=== PATIENT | female | born 1965 | race Two or more races ===

== ENCOUNTER 2018-02-28 11:38 | Emergency (ER) | payer BC ==
[2018-02-28 11:46] VITALS: BP 140/92
--- NOTE | 2018-02-28 12:11 | UC ---
Malachi Adams Jennifer, scribed for Sherice Macias MD on 02/28/18 at 1202 . General HPI - HPI Summary HPI Summary: The patient is a 52 year old female who presents with diarrhea for the past two days. The patient reports that it was sudden onset diarrhea followed by a headache, feeling freezing, fever, nausea, and rumbly stomach but denies vomiting. She explains that she had watery diarrhea all day yesterday, but less so today after taking Imodium. She has had three bowel movements today but denies blood in the stool. The patient reports that she hasnt taken her normal medications today and cant remember if she did yesterday, but it usually doesn t affect her when she misses her medications. 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 - History of Current Complaint Chief Complaint: UCGI Stated Complaint: DIARRHEA Time Seen by Provider: 02/28/18 11:52 Hx Obtained From: Patient Hx Last Menstrual Period: June, hormones Onset/Duration: Sudden Onset, Lasting Days - 2 days, Still Present Timing: Constant Onset Severity: Mild Current Severity: Mild Pain Intensity: 1 Associated Signs & Symptoms: Positive: Other - diarrhea, headache, chills, fever , nausea, "rumbly" stomach. NEGATIVE: vomiting - Allergy/Home Medications Allergies/Adverse Reactions: Allergies Allergy/AdvReac Type Severity Reaction Status Date / Time cefuroxime [From Ceftin] Allergy Vomiting Verified 02/28/18 11:47 Sulfa (Sulfonamide Allergy Rash Verified 02/28/18 11:47 Antibiotics) Home Medications: Home Medications Meloxicam 7.5 mg PO 02/28/18 [History] PMH/Surg Hx/FS Hx/Imm Hx GI/ History: Other Other GI/ History: Endometriosis Psychological History: Anxiety, Depression - Surgical History Surgical History: Yes Surgery Procedure, Year, and Place: Endometrial growth removed. Removed uterine fibroids, dermoid cyst removed, tubal ligation. cyst removed from eyelid. UFE PROCEDURE -02/29/16 - Family History Known Family History: Positive: Hypertension - Father - Social History Occupation: Employed Full-time Lives: Alone Alcohol Use: Rare Substance Use Type: None Smoking Status (MU): Never Smoked Tobacco Review of Systems Constitutional: Fever, Chills Skin: Negative Eyes: Negative ENT: Negative Respiratory: Negative Cardiovascular: Negative Gastrointestinal: Negative - Vomiting, Diarrhea, Nausea, Other - "rumbly" stomach, blood in stool Genitourinary: Negative Motor: Negative Neurovascular: Negative Musculoskeletal: Negative Neurological: Headache Psychological: Negative All Other Systems Reviewed And Are Negative: Yes Physical Exam Triage Information Reviewed: Yes Appearance: No Pain Distress, Well-Nourished Vital Signs: Initial Vital Signs Temp 97.0 F 02/28/18 11:43 Pulse 119 02/28/18 11:43 Resp 18 02/28/18 11:43 BP 140/92 02/28/18 11:43 Pulse Ox 98 02/28/18 11:43 Eyes: Positive: Conjunctiva Clear ENT: Positive: Pharynx normal, TMs normal Neck: Positive: Supple, Nontender, No Lymphadenopathy Respiratory: Positive: Lungs clear, Normal breath sounds Cardiovascular: Positive: RRR, No Murmur Abdomen Description: Positive: Nontender, No Organomegaly, Soft Bowel Sounds: Positive: Hyperactive Musculoskeletal Exam: Normal Neurological Exam: Normal Psychological Exam: Normal Skin Exam: Normal Course/Dx - Course Course Of Treatment: The patient is a 52 year old female who presents with diarrhea for the past two days. Pt medications reviewed at this visit. Allergies noted. BP noted and advised to follow up with PCP. Rehydration and advancement of diet discussed. - Differential Dx - Multi-Symptom Differential Diagnoses: Other - gastroenteritis, colitis, diverticulitis. Provider Diagnoses: acute gastroenteritis. Discharge - Sign-Out/Discharge Documenting (check all that apply): Discharge - Discharge Plan Condition: Stable Disposition: HOME Patient Education Materials: Gastroenteritis (ED), Nutrition Tips for Relief of Diarrhea (ED) Forms: *Work Release Referrals: Cynthia Rico NP [Primary Care Provider] - Additional Instructions: As discussed, focus on rehydration and gradually advancing your diet. Ensure that you take your medications today with a light meal. Today you might try some protein (scrambled eggs or poached chicken) along with cooked vegetables. Off work tomorrow. - Billing Disposition and Condition Condition: STABLE Disposition: HOME The documentation as recorded by the Malachi dangelo Jennifer accurately reflects the service I personally performed and the decisions made by me, Sherice Macias MD.
== END 2018-02-28 12:22 | disposition home or self-care (01) ==
LOC: UCEAST 11:38
DX: K52.9 Noninfective gastroenteritis and colitis, unspecified (principal); N80.9 Endometriosis, unspecified; F41.9 Anxiety disorder, unspecified; F32.9 Major depressive disorder, single episode, unspecified; Z88.1 Allergy status to other antibiotic agents; Z88.2 Allergy status to sulfonamides
CPT/HCPCS: 99211; G0463

== ENCOUNTER 2018-04-03 14:53 | Emergency (ER) | payer BC ==
--- NOTE | 2018-04-03 15:00 | UC ---
Throat Pain/Nasal Armando HPI - HPI Summary HPI Summary: 52 yo female presents with continued upper respiratory complaints. She tells me that about 3 weeks ago she saw her PCP for a "sinus infection" and was rx'd omnicef - had no relief. Went back 1 week ago because pt developed a productive cough and chest tightness - was rx'd prednisone, of which she is still taking today. Pt here today with no improvement of symptoms. She says that respiratory problems are "her thing" and she knows what usually works well. Has tried albuterol and advair in the past but she says they made her symptoms worse. Is intolerant to a variety of antibiotics. Denies fever, chills, SOB, chest pain, abdominal pain, n/v. - History of Current Complaint Stated Complaint: SINUS Time Seen by Provider: 04/03/18 15:00 Hx Obtained From: Patient Hx Last Menstrual Period: June, hormones Onset/Duration: Gradual Onset Cough: Productive - Allergies/Home Medications Allergies/Adverse Reactions: Allergies Allergy/AdvReac Type Severity Reaction Status Date / Time amoxicillin [From Augmentin] Allergy GI Upset Verified 04/03/18 15:06 cefuroxime [From Ceftin] Allergy Vomiting Verified 02/28/18 11:47 clarithromycin [From Biaxin] Allergy GI Upset Verified 04/03/18 15:06 clavulanic acid Allergy GI Upset Verified 04/03/18 15:06 [From Augmentin] erythromycin base Allergy GI Upset Verified 04/03/18 15:06 Sulfa (Sulfonamide Allergy Rash Verified 02/28/18 11:47 Antibiotics) Home Medications: Home Medications predniSONE [Prednisone] 20 mg PO DAILY 04/03/18 [History Confirmed 04/03/18] PMH/Surg Hx/FS Hx/Imm Hx Previously Healthy: Yes Respiratory History: Asthma GI/ History: Gastroesophageal Reflux Psychological History: Anxiety, Depression, Bipolar Disorder - Surgical History Surgical History: Yes Surgery Procedure, Year, and Place: Endometrial growth removed. Removed uterine fibroids, dermoid cyst removed, tubal ligation. cyst removed from eyelid. UFE PROCEDURE -02/29/16 - Family History Known Family History: Positive: Hypertension - Father - Social History Occupation: Employed Full-time Lives: With Family Alcohol Use: Rare Substance Use Type: None Smoking Status (MU): Never Smoked Tobacco Review of Systems Constitutional: Negative Skin: Negative Eyes: Negative ENT: Nasal Discharge, Sinus Congestion, Sinus Pain/Tenderness Respiratory: Cough Cardiovascular: Negative Gastrointestinal: Negative Neurovascular: Negative Neurological: Negative Psychological: Negative All Other Systems Reviewed And Are Negative: Yes Physical Exam - Summary Physical Exam Summary: GENERAL: NAD. WDWN. No pain distress. SKIN: No rashes, sores, lesions, or open wounds. HEENT: Head: AT/NC Eyes: EOM intact. Conjunctiva clear without inflammation or discharge. Ears: Hearing grossly normal. TMs intact, no bulging, erythema, or edema. Nose: Nasal mucosa mildly swollen and erythematous with yellow/ clear discharge. TTP maxillary and frontal sinus. Throat: Posterior oropharynx without exudates, erythema, or tonsillar enlargement. Uvula midline. NECK: Supple. Nontender. No lymphadenopathy. CHEST: CTAB. No r/r/w. No accessory muscle use. Breathing comfortably and in no distress. CV: RRR. Without m/r/g. Pulses intact. Brisk cap refill. NEURO: Alert. CN II-XII grossly intact. PSYCH: Age appropriate behavior. Triage Information Reviewed: Yes Throat Pain/Nasal Course/Dx - Course Course Of Treatment: Sinusitis. Bronchitis. Pt says the only thing that works for her and that she can take is levaquin. - Differential Dx/Diagnosis Provider Diagnoses: Sinusitis. Bronchitis Discharge - Sign-Out/Discharge Documenting (check all that apply): Discharge/Admit/Transfer - Discharge Plan Condition: Stable Disposition: HOME Prescriptions: Levofloxacin TAB* [Levaquin TAB*] 500 mg PO DAILY #10 tab Patient Education Materials: Sinusitis (ED), Acute Bronchitis (ED) Referrals: Cynthia Rico NP [Primary Care Provider] - Additional Instructions: If you develop a fever, shortness of breath, chest pain, new or worsening symptoms - please call your PCP or go to the ED. - Billing Disposition and Condition Condition: STABLE Disposition: HOME
[2018-04-03 15:05] VITALS: BP 135/80
== END 2018-04-03 15:33 | disposition home or self-care (01) ==
LOC: UCCORT 14:53
DX: J32.9 Chronic sinusitis, unspecified (principal); J40 Bronchitis, not specified as acute or chronic; Z88.1 Allergy status to other antibiotic agents; Z88.0 Allergy status to penicillin; Z88.2 Allergy status to sulfonamides; Z88.8 Allergy status to other drugs, medicaments and biological substances
CPT/HCPCS: 99212; G0463

== ENCOUNTER 2019-02-15 16:27 | Emergency (ER) | payer BC ==
[2019-02-15 17:48] VITALS: BP 156/86
--- NOTE | 2019-02-15 18:24 | UC ---
Throat Pain/Nasal Armando HPI - HPI Summary HPI Summary: 53-year-old woman comes in with a chief complaint of sinusitis and bronchitis with bronchospasm. She's been having recurring sinusitis ever since December of this year. She was treated with azithromycin first which did not completely take it away and then in January she was treated with Levaquin which did help quite a bit however the symptoms have returned and are worse. She's having rhinorrhea sinus pressure and now she feels like it's going into her chest and she's getting some wheezing and chest congestion. No recent fevers. - History of Current Complaint Chief Complaint: UCRespiratory Stated Complaint: SINUS CONGESTION Time Seen by Provider: 02/15/19 18:10 Hx Last Menstrual Period: June, on hormones Pain Intensity: 1 - Allergies/Home Medications Allergies/Adverse Reactions: Allergies Allergy/AdvReac Type Severity Reaction Status Date / Time amoxicillin [From Augmentin] Allergy GI Upset Verified 02/15/19 17:45 cefuroxime [From Ceftin] Allergy Vomiting Verified 02/15/19 17:45 clarithromycin [From Biaxin] Allergy GI Upset Verified 02/15/19 17:45 clavulanic acid Allergy GI Upset Verified 02/15/19 17:45 [From Augmentin] erythromycin base Allergy GI Upset Verified 02/15/19 17:45 Sulfa (Sulfonamide Allergy Rash Verified 02/15/19 17:45 Antibiotics) PMH/Surg Hx/FS Hx/Imm Hx Previously Healthy: Yes GI/ History: Gastroesophageal Reflux - Surgical History Surgical History: Yes Surgery Procedure, Year, and Place: Endometrial growth removed. Removed uterine fibroids, dermoid cyst removed, tubal ligation. cyst removed from eyelid. UFE PROCEDURE -02/29/16 - Family History Known Family History: Positive: Hypertension - Father - Social History Alcohol Use: Rare Substance Use Type: None Smoking Status (MU): Never Smoked Tobacco Review of Systems All Other Systems Reviewed And Are Negative: Yes Constitutional: Positive: Negative Skin: Positive: Negative Eyes: Positive: Negative ENT: Positive: Nasal Discharge, Sinus Congestion, Sinus Pain/Tenderness Respiratory: Positive: Cough, Other - SEE HPI Cardiovascular: Positive: Negative Gastrointestinal: Positive: Negative Motor: Positive: Negative Neurovascular: Positive: Negative Musculoskeletal: Positive: Negative Neurological: Positive: Negative Psychological: Positive: Negative Is Patient Immunocompromised?: No Physical Exam Triage Information Reviewed: Yes Appearance: No Pain Distress, Well-Nourished, Ill-Appearing - MILD Vital Signs: Initial Vital Signs Temp 98.3 F 02/15/19 17:40 Pulse 83 02/15/19 17:40 Resp 16 02/15/19 17:40 BP 156/86 02/15/19 17:40 Pulse Ox 99 02/15/19 17:40 Vital Signs Reviewed: Yes Eye Exam: Normal Eyes: Positive: Conjunctiva Clear ENT: Positive: Pharyngeal erythema, Nasal congestion, Nasal drainage, TMs normal Neck: Positive: Supple Respiratory: Positive: Lungs clear, Normal breath sounds, No respiratory distress Cardiovascular: Positive: RRR Musculoskeletal: Positive: Strength Intact, ROM Intact Neurological: Positive: Alert, Muscle Tone Normal Psychological: Positive: Age Appropriate Behavior Skin Exam: Normal Throat Pain/Nasal Course/Dx - Differential Dx/Diagnosis Provider Diagnosis: Bronchitis with bronchospasm, Sinusitis Discharge - Sign-Out/Discharge Documenting (check all that apply): Patient Departure All imaging exams completed and their final reports reviewed: No Studies - Discharge Plan Condition: Stable Disposition: HOME Prescriptions: Levofloxacin TAB* [Levaquin TAB*] 500 mg PO DAILY #10 tab predniSONE TAB* [Deltasone 20 MG TAB*] 40 mg PO DAILY #10 tab Patient Education Materials: Sinusitis (ED), Acute Bronchitis (ED), Bronchospasm (ED) Referrals: Cynthia Rico NP [Primary Care Provider] - Additional Instructions: FOLLOW UP WITH YOUR DOCTOR IF NOT COMPLETELY IMPROVED. GET REEVALUATED SOONER FOR ANY WORSENING OF YOUR CONDITION OR ANY QUESTIONS OR CONCERNS. - Billing Disposition and Condition Condition: STABLE Disposition: Home
== END 2019-02-15 18:30 | disposition home or self-care (01) ==
LOC: UCEAST 16:27
DX: J20.9 Acute bronchitis, unspecified (principal); J32.9 Chronic sinusitis, unspecified; Z88.0 Allergy status to penicillin; Z88.1 Allergy status to other antibiotic agents; Z88.2 Allergy status to sulfonamides
CPT/HCPCS: 99212; G0463

== ENCOUNTER 2019-03-10 07:53 | Emergency (ER) | payer BC ==
[2019-03-10 08:07] VITALS: BP 143/82
--- NOTE | 2019-03-10 08:40 | UC ---
Hand/Wrist HPI - HPI Summary HPI Summary: 53-year-old female comes in with a chief complaint of redness swelling and tenderness in the right fourth finger on the ulnar aspect of the fingernail. Patient believes is an infection. Does hurt when she touches it it is less painful when she does not touch it. No fevers or chills. She's not had any drainage from the area. No specific trauma. - History Of Current Complaint Chief Complaint: UCSkin Stated Complaint: FINGER PAIN Time Seen by Provider: 03/10/19 08:18 Hx Last Menstrual Period: June, on hormones Pain Intensity: 5 - Allergies/Home Medications Allergies/Adverse Reactions: Allergies Allergy/AdvReac Type Severity Reaction Status Date / Time amoxicillin [From Augmentin] Allergy GI Upset Verified 03/10/19 08:06 cefuroxime [From Ceftin] Allergy Vomiting Verified 03/10/19 08:06 clarithromycin [From Biaxin] Allergy GI Upset Verified 03/10/19 08:06 clavulanic acid Allergy GI Upset Verified 03/10/19 08:06 [From Augmentin] erythromycin base Allergy GI Upset Verified 03/10/19 08:06 Sulfa (Sulfonamide Allergy Rash Verified 03/10/19 08:06 Antibiotics) Home Medications: Home Medications Ibuprofen [Advil] 600 mg PO ONCE PRN 03/10/19 [History Confirmed 03/10/19] PMH/Surg Hx/FS Hx/Imm Hx Previously Healthy: Yes GI/ History: Gastroesophageal Reflux - Surgical History Surgical History: Yes Surgery Procedure, Year, and Place: Endometrial growth removed. Removed uterine fibroids, dermoid cyst removed, tubal ligation. cyst removed from eyelid. UFE PROCEDURE -02/29/16 - Family History Known Family History: Positive: Hypertension - Father - Social History Alcohol Use: Rare Substance Use Type: None Smoking Status (MU): Never Smoked Tobacco Review of Systems All Other Systems Reviewed And Are Negative: Yes Constitutional: Positive: Negative Skin: Positive: Other - SEE HPI Eyes: Positive: Negative ENT: Positive: Negative Respiratory: Positive: Negative Cardiovascular: Positive: Negative Gastrointestinal: Positive: Negative Motor: Positive: Negative Neurovascular: Positive: Negative Musculoskeletal: Positive: Negative Neurological: Positive: Negative Psychological: Positive: Negative Is Patient Immunocompromised?: No Physical Exam Triage Information Reviewed: Yes Appearance: Well-Appearing, No Pain Distress, Well-Nourished Vital Signs: Initial Vital Signs Temp 98.8 F 03/10/19 08:00 Pulse 90 03/10/19 08:00 Resp 18 03/10/19 08:00 BP 143/82 03/10/19 08:00 Pulse Ox 98 03/10/19 08:00 Vital Signs Reviewed: Yes Eye Exam: Normal Eyes: Positive: Conjunctiva Clear Neck: Positive: Supple Respiratory: Positive: No respiratory distress Musculoskeletal: Positive: Strength Intact, ROM Intact Neurological Exam: Normal Neurological: Positive: Alert, Muscle Tone Normal Psychological Exam: Normal Psychological: Positive: Age Appropriate Behavior Skin: Positive: Other - RT 4TH FINGER ULNAR ASPECT OF FINGERNAIL STS, ERTHTHEMA , TENDER TO PALPATION. NO PUS POCKET ON EXAM. NL CAP REFILL, NO SENSATION DEFICIT. Hand/Wrist Course/Dx - Differential Dx/Diagnosis Provider Diagnosis: Paronychia of right ring finger Discharge - Sign-Out/Discharge Documenting (check all that apply): Patient Departure All imaging exams completed and their final reports reviewed: No Studies - Discharge Plan Condition: Stable Disposition: HOME Prescriptions: DOXYcycline CAP(*) [DOXYcycline 100MG CAP(*)] 100 mg PO BID #20 cap Patient Education Materials: Paronychia (ED) Referrals: Cynthia Rico NP [Primary Care Provider] - Additional Instructions: FOLLOW UP WITH YOUR DOCTOR IF NOT COMPLETELY IMPROVED. GET REEVALUATED SOONER IF YOUR CONDITION WORSENS OR ANY QUESTIONS OR CONCERNS. - Billing Disposition and Condition Condition: STABLE Disposition: Home
== END 2019-03-10 08:43 | disposition home or self-care (01) ==
LOC: UCEAST 07:53
DX: L03.011 Cellulitis of right finger (principal); K21.9 Gastro-esophageal reflux disease without esophagitis; Z88.1 Allergy status to other antibiotic agents; Z88.0 Allergy status to penicillin; Z88.2 Allergy status to sulfonamides
CPT/HCPCS: 99212; G0463

== ENCOUNTER 2019-04-25 17:04 | Emergency (ER) | payer BC ==
[2019-04-25 17:20] VITALS: BP 134/87
[2019-04-25] MEDS ORDERED: Albuterol/Ipratropium NEB.SOL* Albuterol 2.5 MG/Ipratropium 0.5 MG 3 ML INH ONE (17:26)
--- NOTE | 2019-04-25 17:31 | UC ---
Respiratory Complaint HPI - HPI Summary HPI Summary: 53-year-old female who has had cold symptoms for the past week with head congestion and sinus pressure today. She also has a tight cough, nonproductive. She denies any fever or chills. No history of asthma however she has been told that she has reactive airway disease. She has no history of allergies however has been told in the past "your body actually acts allergic to things". - History of Current Complaint Chief Complaint: UCRespiratory Stated Complaint: URI Time Seen by Provider: 04/25/19 17:13 Hx Obtained From: Patient Hx Last Menstrual Period: June, on hormones ?: No Onset/Duration: Gradual Onset Timing: Intermittent Episodes - Mostly when coughing. Severity Initially: Mild Severity Currently: Moderate - Patient states she feels 10 times worse today. Pain Intensity: 0 Character: Cough: Nonproductive Aggravating Factors: Allergens Alleviating Factors: Nothing Associated Signs And Symptoms: Positive: Wheezing, URI, Nasal Congestion, Sinus Discomfort - Allergies/Home Medications Allergies/Adverse Reactions: Allergies Allergy/AdvReac Type Severity Reaction Status Date / Time amoxicillin [From Augmentin] Allergy GI Upset Verified 04/25/19 17:20 cefuroxime [From Ceftin] Allergy Vomiting Verified 04/25/19 17:20 clarithromycin [From Biaxin] Allergy GI Upset Verified 04/25/19 17:20 clavulanic acid Allergy GI Upset Verified 04/25/19 17:20 [From Augmentin] erythromycin base Allergy GI Upset Verified 04/25/19 17:20 Sulfa (Sulfonamide Allergy Rash Verified 04/25/19 17:20 Antibiotics) PMH/Surg Hx/FS Hx/Imm Hx Previously Healthy: Yes Cardiovascular History: Hypertension Psychological History: Depression - Surgical History Surgical History: Yes Surgery Procedure, Year, and Place: Endometrial growth removed. Removed uterine fibroids, dermoid cyst removed, tubal ligation. cyst removed from eyelid. UFE PROCEDURE -02/29/16 - Family History Known Family History: Positive: Hypertension - Father - Social History Occupation: Employed Full-time Alcohol Use: Rare Substance Use Type: None Smoking Status (MU): Never Smoked Tobacco Review of Systems All Other Systems Reviewed And Are Negative: Yes ENT: Positive: Nasal Discharge, Sinus Congestion, Sinus Pain/Tenderness Respiratory: Positive: Cough - Tight cough. Is Patient Immunocompromised?: No Physical Exam Triage Information Reviewed: Yes Appearance: Well-Appearing, No Pain Distress, Well-Nourished Vital Signs: Initial Vital Signs Temp 97.7 F 04/25/19 17:12 Pulse 84 04/25/19 17:12 Resp 16 04/25/19 17:12 BP 134/87 04/25/19 17:12 Pulse Ox 96 04/25/19 17:12 Vital Signs Reviewed: Yes Eyes: Positive: Conjunctiva Clear ENT: Positive: Pharynx normal, Nasal congestion, TMs normal, Sinus tenderness - Bilateral maxillary sinus tenderness on palpation., Uvula midline Neck: Positive: Supple, Nontender, No Lymphadenopathy Respiratory: Positive: No respiratory distress, No accessory muscle use, Wheezing - Very tight cough with very minimal wheezing with forced expiration. Cardiovascular: Positive: RRR, No Murmur, Pulses Normal, Brisk Capillary Refill Musculoskeletal Exam: Normal Neurological Exam: Normal Psychological Exam: Normal Skin Exam: Normal Respiratory Course/Dx - Course Course Of Treatment: DuoNeb treatment: Although patient feels like she did not improve with a DuoNeb treatment her lungs are much clearer, less tight of a cough and less wheezing. Although she states the only thing that usually works for her is Levaquin I did ask her to try doxycycline twice a day for 10 days and also put her on a tapering dose of prednisone. She is to follow-up with her primary care provider if no improvement in 4 or 5 days. - Differential Dx/Diagnosis Provider Diagnosis: Bronchitis, Sinusitis Discharge - Sign-Out/Discharge Documenting (check all that apply): Patient Departure All imaging exams completed and their final reports reviewed: No Studies - Discharge Plan Condition: Fair Disposition: HOME Prescriptions: DOXYcycline CAP(*) [DOXYcycline 100MG CAP(*)] 100 mg PO BID 10 Days #20 cap predniSONE [Prednisone 20 MG TAB] 20 mg PO DAILY 9 Days #18 tablet Patient Education Materials: Sinusitis (ED), Acute Bronchitis (ED) Referrals: Cynthia Rico NP [Primary Care Provider] - Additional Instructions: Increase fluids, take the prednisone with food. Do not eat any dairy products, antacids or multivitamins 2 hours before you take the doxycycline and 2 hours after you take it however be sure and take it with food. Definite follow-up with your primary care provider if no improvement in 3 or 4 days. - Billing Disposition and Condition Condition: FAIR Disposition: Home - Attestation Statements Provider Attestation: I was available for consult. This patient was seen by the VIOLA. The patient was not presented to, seen by, or examined by me. -Kalyani
== END 2019-04-25 17:57 | disposition home or self-care (01) ==
LOC: UCEAST 17:04
DX: J40 Bronchitis, not specified as acute or chronic (principal); J32.9 Chronic sinusitis, unspecified; Z88.0 Allergy status to penicillin; Z88.1 Allergy status to other antibiotic agents; I10 Essential (primary) hypertension
CPT/HCPCS: 99212; A9270-GY; G0463